=== PATIENT | female | born 1945 | race Caucasian/White ===

== ENCOUNTER 2020-04-05 00:55 | Inpatient (IN) ==
[2020-04-05] MEDS ORDERED: *HR* Ticagrelor 90 MG TABLET ONE (01:18)
[2020-04-05] MEDS ORDERED: 0.9 % Sodium Chloride 1,000 ML ONE ×2 (01:18→01:33)
[2020-04-05] MEDS ORDERED: Aspirin 81 MG TAB.CHEW ONE (01:18)
[2020-04-05] MEDS ORDERED: *HR* Heparin 5,000 UNIT/ML VIAL ONE (01:18)
[2020-04-05] MEDS ORDERED: *HR* FentaNYL (PF) 100 MCG/2 ML VIAL IVP ONE (01:25)
[2020-04-05] MEDS ORDERED: *HR* Ticagrelor 90 MG TABLET PO ONE (01:27)
[2020-04-05] MEDS ORDERED: *HR* Heparin 5,000 UNIT/ML VIAL IVP ONE (01:27)
[2020-04-05] MEDS ORDERED: 0.9 % Sodium Chloride 1,000 ML IV ONE (01:31)
[2020-04-05] MEDS ORDERED: *HR* Bivalirudin 250 MG VIAL IVC ONE (01:33)
[2020-04-05] MEDS ORDERED: ISOVUE-370 200 ML INFUS..BTL ONE (01:34)
[2020-04-05] MEDS ORDERED: *HR* Heparin 10,000 UNIT/10 ML VIAL ONE (01:34)
[2020-04-05] MEDS ORDERED: Heparin 1,000 UNITS/500 mL 500 ML ONE (01:34)
[2020-04-05] MEDS ORDERED: Nitroglycerin 1,000 MCG/10 ML VIAL IV ONE (01:34)
[2020-04-05 01:41] LABS: Basophils # 0.1 K/mcL (0.0-0.2); Basophils % 0.5 %; Eosinophils # 0.1 K/mcL (0.0-0.6); Eosinophils % 0.6 %; Hematocrit 46.7 % (35.3-44.9); Hemoglobin 14.9 g/dL (11.5-15.4); Immature Granulocytes % 0.3 % (0-4); Lymphocytes # 1.3 K/mcL (0.6-4.6); Lymphocytes % 8.7 %; Mean Corpuscular HGB Conc 31.9 g/dL (31.6-35.5); Mean Corpuscular Hemoglobin 28.7 pg (28.0-33.3); Mean Platelet Volume 10.5 fL (9.4-12.4); Monocytes # 1.1 K/mcL (0.0-1.3); Monocytes % 7.4 %; Neutrophils # 11.9 K/mcL (1.6-8.9); Platelet Count 234 K/mcL (140-400); Red Blood Count 5.19 M/mcL (3.82-4.97); Red Cell Distribution Width 13.2 % (11.5-14.5); Segmented Neutrophils % 82.5 %; White Blood Count 14.4 K/mcL (4.3-11.1)
[2020-04-05 01:47] LABS: INR 0.9; Prothrombin Time 10.7 Seconds (9.4-12.1)
[2020-04-05 01:59] LABS: BUN/Creatinine Ratio 13 (6-26); Blood Urea Nitrogen 20 mg/dL (8-23); Calcium 10.1 mg/dL (8.6-10.3); Carbon Dioxide 26 mEq/L (23-29); Chloride 102 mEq/L (98-107); Glucose 159 mg/dL (70-105); Osmolality,Calculated 290 (280-300); Potassium 4.5 mEq/L (3.5-5.1); Sodium 137 mEq/L (136-145); eGFR For African Americans 39 (> 60); eGFR For Non-African Americans 32 (> 60)
[2020-04-05 02:00] LABS: Troponin I < 0.03 ng/mL (< 0.04)
[2020-04-05] MEDS ORDERED: *HR* Midazolam HCl 2 MG/2 ML VIAL ONE (02:00)
[2020-04-05] MEDS ORDERED: *HR* FentaNYL (PF) 100 MCG/2 ML VIAL ONE (02:00)
[2020-04-05 02:52] LABS: Adenovirus Not Detected (Not Detect); Bordetella Pertussis Not Detected (Not Detect); Chlamydophila pneumoniae Not Detected (Not Detect); Coronavirus 229E Not Detected (Not Detect); Coronavirus HKU1 Not Detected (Not Detect); Coronavirus NL63 Not Detected (Not Detect); Coronavirus OC43 Not Detected (Not Detect); Human Metapneumovirus Not Detected (Not Detect); Human Rhinovirus/Enterovirus Not Detected (Not Detect); Influenza A Subtype 2009 H1 Not Detected (Not Detect); Influenza B Not Detected (Not Detect); Mycoplasma pneumoniae Not Detected (Not Detect); Parainfluenza Virus 1 Not Detected (Not Detect); Parainfluenza Virus 2 Not Detected (Not Detect); Parainfluenza Virus 3 Not Detected (Not Detect); Parainfluenza Virus 4 Not Detected (Not Detect); Respiratory Syncytial Virus Not Detected (Not Detect); SARS-CoV-2 Not Detected (Not Detect)
[2020-04-05] MEDS ORDERED: Acetaminophen 325 MG TABLET PO PRN (02:55)
[2020-04-05] MEDS ORDERED: Perflutren Lipid Microsphere 1.3 ML in 0.9 % Sodium Chloride 8.7 ML IVP PRN (02:55)
[2020-04-05] MEDS ORDERED: Nitroglycerin 0.4 MG TAB.SUBL SL PRN (02:55)
[2020-04-05] MEDS ORDERED: 0.9 % Sodium Chloride 1,000 ML IVC SCH (03:00)
[2020-04-05] MEDS ORDERED: *HR* Dextrose 50 % in Water (Vial) 50 ML VIAL IVP PRN (03:14)
[2020-04-05] MEDS ORDERED: D5% in Water 1,000 ML IVC PRN (03:14)
[2020-04-05] MEDS ORDERED: Dextrose Gel 15 GM/37.5 ML TUBE PO PRN ×2 (03:14)
[2020-04-05] MEDS ORDERED: *HR* Atropine Sulfate 1 MG/10 ML SYRINGE ONE (04:42)
[2020-04-05] MEDS ORDERED: Ondansetron 4 MG/2 ML VIAL ONE (05:05)
[2020-04-05] MEDS: Isosorbide MONOnitrate (24 HR) 30 MG TAB.ER.24H PO SCH (07:55)
[2020-04-05 08:10] LABS: Basophils # 0.1 K/mcL (0.0-0.2); Basophils % 0.4 %; Eosinophils % 0.1 %; Hematocrit 43.2 % (35.3-44.9); Hemoglobin 14.2 g/dL (11.5-15.4); Immature Granulocytes % 0.3 % (0-4); Lymphocytes # 1.5 K/mcL (0.6-4.6); Lymphocytes % 11.6 %; Mean Corpuscular HGB Conc 32.9 g/dL (31.6-35.5); Mean Corpuscular Volume 91.1 fL (83.0-100.0); Mean Platelet Volume 10.4 fL (9.4-12.4); Monocytes # 1.2 K/mcL (0.0-1.3); Monocytes % 8.9 %; Neutrophils # 10.2 K/mcL (1.6-8.9); Platelet Count 223 K/mcL (140-400); Red Blood Count 4.74 M/mcL (3.82-4.97); Red Cell Distribution Width 13.2 % (11.5-14.5); Segmented Neutrophils % 78.7 %; White Blood Count 12.9 K/mcL (4.3-11.1)
[2020-04-05] MEDS: Aspirin 81 MG TAB.CHEW PO SCH (08:10)
[2020-04-05] MEDS: Insulin LISPRO 300 UNITS/3 ML VIAL SQ SCH ×3 (08:10→16:05)
[2020-04-05 08:31] LABS: Calcium 9.6 mg/dL (8.6-10.3); Chol/HDL Ratio 3.2 (0-4.9); Potassium 4.5 mEq/L (3.5-5.1); Troponin I 0.03 ng/mL (< 0.04)
[2020-04-05 08:44] LABS: Thyroid Stimulating Hormone 1.427 mcIU/mL (0.340-5.600)
[2020-04-05 09:40] LABS: Estimated Average Glucose 120 mg/dl
[2020-04-05] MEDS: *HR* Heparin 5,000 UNIT/ML VIAL SQ SCH (18:01)
[2020-04-05] MEDS: Ondansetron 4 MG/2 ML VIAL IVP PRN ×2 (18:01→23:54)
[2020-04-06] MEDS: *HR* Heparin 5,000 UNIT/ML VIAL SQ SCH ×2 (05:16→18:41)
[2020-04-06] MEDS ORDERED: DilTIAZem CD (24hr) 300 MG CAP.ER.24H PO SCH (09:00)
[2020-04-06] MEDS: Ondansetron 4 MG/2 ML VIAL IVP PRN ×2 (09:34→18:40)
[2020-04-06] MEDS: Insulin LISPRO 300 UNITS/3 ML VIAL SQ SCH ×3 (09:41→17:08)
[2020-04-06] MEDS: Aspirin 81 MG TAB.CHEW PO SCH (10:35)
[2020-04-06] MEDS: Isosorbide MONOnitrate (24 HR) 30 MG TAB.ER.24H PO SCH (10:35)
[2020-04-06] MEDS ORDERED: Acetaminophen 325 MG TABLET PO PRN (12:35)
[2020-04-06] MEDS ORDERED: D5% in Water 1,000 ML IVC PRN (12:35)
[2020-04-06] MEDS ORDERED: polyethylene glycoL 3350 17 GM POWD.PACK PO PRN (12:35)
[2020-04-06] MEDS ORDERED: Dextrose Gel 15 GM/37.5 ML TUBE PO PRN ×2 (12:35)
[2020-04-06] MEDS ORDERED: Nitroglycerin 0.4 MG TAB.SUBL SL PRN (12:35)
[2020-04-06] MEDS ORDERED: *HR* Dextrose 50 % in Water (Vial) 50 ML VIAL IVP PRN (12:35)
[2020-04-07] MEDS: Ondansetron 4 MG/2 ML VIAL IVP PRN ×4 (02:22→23:07)
[2020-04-07] MEDS: *HR* Heparin 5,000 UNIT/ML VIAL SQ SCH (05:03)
[2020-04-07] MEDS: Insulin LISPRO 300 UNITS/3 ML VIAL SQ SCH ×3 (08:01→18:12)
[2020-04-07] MEDS: Isosorbide MONOnitrate (24 HR) 30 MG TAB.ER.24H PO SCH (08:02)
[2020-04-07] MEDS: Aspirin 81 MG TAB.CHEW PO SCH (08:02)
[2020-04-07] MEDS ORDERED: *HR* Promethazine 25 MG/ML VIAL IVP PRN (08:24)
[2020-04-07] MEDS ORDERED: *HR* Metoprolol 5 MG/5 ML VIAL IVP ONE (08:24)
[2020-04-07] MEDS ORDERED: DilTIAZem 50 MG in 0.9 % Sodium Chloride 40 ML IVC SCH ×2 (08:30→09:01)
[2020-04-07] MEDS ORDERED: Heparin 25,000UNIT/250ML 1/2NS 25,000 UNIT/250 ML IV.SOLN IVC SCH (08:30)
[2020-04-07] MEDS ORDERED: *HR* Heparin 5,000 UNIT/ML VIAL IVP PRN ×2 (08:30)
[2020-04-07] MEDS ORDERED: DilTIAZem CD (24hr) 300 MG CAP.ER.24H PO SCH (09:00)
[2020-04-07 09:26] LABS: Hematocrit 40.5 % (35.3-44.9); Hemoglobin 13.2 g/dL (11.5-15.4); Mean Corpuscular HGB Conc 32.6 g/dL (31.6-35.5); Mean Corpuscular Hemoglobin 29.3 pg (28.0-33.3); Mean Corpuscular Volume 89.8 fL (83.0-100.0); Mean Platelet Volume 11.4 fL (9.4-12.4); Platelet Count 226 K/mcL (140-400); Red Blood Count 4.51 M/mcL (3.82-4.97); Red Cell Distribution Width 13.2 % (11.5-14.5); White Blood Count 10.8 K/mcL (4.3-11.1)
[2020-04-07 09:35] LABS: Heparin anti-factor XA UFH 0.06 IU/mL (0.30-0.70)
[2020-04-07 09:36] LABS: Prothrombin Time 11.2 Seconds (9.4-12.1)
[2020-04-07 09:38] LABS: Magnesium 2.2 mg/dL (1.6-2.6); Potassium 4.1 mEq/L (3.5-5.1)
[2020-04-07] MEDS: Apixaban 5 MG TABLET PO SCH ×2 (12:13→20:52)
[2020-04-07] MEDS: Sodium Bicarbonate 75 MEQ in 0.45 % Sodium Chloride 1,000 ML IVC SCH (23:06)
[2020-04-08 02:40] LABS: Basophils # 0.1 K/mcL (0.0-0.2); Basophils % 0.5 %; Eosinophils # 0.1 K/mcL (0.0-0.6); Eosinophils % 1.3 %; Hematocrit 38.6 % (35.3-44.9); Hemoglobin 12.4 g/dL (11.5-15.4); Immature Granulocytes % 0.3 % (0-4); Lymphocytes # 2.1 K/mcL (0.6-4.6); Lymphocytes % 19.4 %; Mean Corpuscular HGB Conc 32.1 g/dL (31.6-35.5); Mean Corpuscular Hemoglobin 29.4 pg (28.0-33.3); Mean Corpuscular Volume 91.5 fL (83.0-100.0); Mean Platelet Volume 11.3 fL (9.4-12.4); Monocytes # 1.1 K/mcL (0.0-1.3); Monocytes % 9.9 %; Neutrophils # 7.4 K/mcL (1.6-8.9); Platelet Count 240 K/mcL (140-400); Red Blood Count 4.22 M/mcL (3.82-4.97); Red Cell Distribution Width 13.2 % (11.5-14.5); Segmented Neutrophils % 68.6 %; White Blood Count 10.8 K/mcL (4.3-11.1)
[2020-04-08 03:02] LABS: Albumin 3.5 g/dL (3.5-5.7); Calcium 8.6 mg/dL (8.6-10.3)
[2020-04-08] MEDS: Insulin LISPRO 300 UNITS/3 ML VIAL SQ SCH ×3 (08:00→16:31)
[2020-04-08] MEDS: Aspirin 81 MG TAB.CHEW PO SCH (10:01)
[2020-04-08] MEDS: Isosorbide MONOnitrate (24 HR) 30 MG TAB.ER.24H PO SCH (10:01)
[2020-04-08] MEDS: DilTIAZem CD (24hr) 180 MG CAP.ER.24H PO SCH (10:02)
[2020-04-08] MEDS: Apixaban 5 MG TABLET PO SCH ×2 (10:02→20:00)
[2020-04-08 11:01] LABS: Bilirubin,Urine Small (Negative); Blood,Urine Trace-intact (Negative); Clarity,Urine Clear (Clear); Color,Urine Yellow (Yellow); Glucose,Urine (UA) Normal (Normal); Ketones,Urine Negative (Negative); Leukocyte Esterase,Urine Negative (Negative); Nitrite,Urine Negative (Negative); PH,Urine 5.5 pH Units (5.0-8.0); Protein,Urine Negative (Neg-Trace); Urobilinogen,Urine Normal (Normal)
[2020-04-08 11:05] LABS: Hyaline Casts,Urine Few per lpf (None Seen); Mucus,Urine Few per lpf (None-Few); RBC,Urine 0-3 per hpf (0-3); Squamous Epithelial Cell,Urine Few per hpf (None-Few); WBC,Urine 0-3 per hpf (0-3)
[2020-04-08] MEDS: Sodium Bicarbonate 75 MEQ in 0.45 % Sodium Chloride 1,000 ML IVC SCH (13:51)
[2020-04-09 02:28] LABS: Hematocrit 34.2 % (35.3-44.9); Hemoglobin 11.5 g/dL (11.5-15.4); Mean Corpuscular HGB Conc 33.6 g/dL (31.6-35.5); Mean Corpuscular Hemoglobin 29.7 pg (28.0-33.3); Mean Corpuscular Volume 88.4 fL (83.0-100.0); Mean Platelet Volume 11.2 fL (9.4-12.4); Platelet Count 228 K/mcL (140-400); Red Blood Count 3.87 M/mcL (3.82-4.97); White Blood Count 8.9 K/mcL (4.3-11.1)
[2020-04-09 02:45] LABS: Calcium 8.5 mg/dL (8.6-10.3); Potassium 3.9 mEq/L (3.5-5.1)
[2020-04-09 06:51] VITALS: BP 104/69
[2020-04-09] MEDS: Insulin LISPRO 300 UNITS/3 ML VIAL SQ SCH (07:41)
[2020-04-09] MEDS: DilTIAZem CD (24hr) 180 MG CAP.ER.24H PO SCH (07:46)
[2020-04-09] MEDS: Apixaban 5 MG TABLET PO SCH (07:46)
[2020-04-09] MEDS: Aspirin 81 MG TAB.CHEW PO SCH (07:46)
[2020-04-09] MEDS: Isosorbide MONOnitrate (24 HR) 30 MG TAB.ER.24H PO SCH (07:46)
[2020-04-12 11:12] LABS: Kappa Qnt Free Light Chains 36.31 mg/L (3.30-19.40); Lambda Qnt Free Light Chains 27.82 mg/L (5.71-26.30)
[2020-04-13 02:40] LABS: Alpha 2 Globulin (PEP) 0.88 g/dL (0.48-1.05); Beta Globulin (PEP) 0.76 g/dL (0.48-1.10)
[2020-04-13 08:05] LABS: IFE Reflexed NOT DONE
== END 2020-04-09 11:56 | disposition other institution (70) | DRG 281 ==
LOC: EMEROOARM 00:55 → ICNU 01:55 → 2NNU 04-06 15:29
PROVIDERS: ADMIT Internal Medicine Interventional Cardiology; ATTEND Internal Medicine Cardiovascular Disease

== ENCOUNTER 2020-04-17 20:48 | Inpatient (IN) ==
[2020-04-18] MEDS ORDERED: Naloxone 0.4 MG/ML INJ IVP PRN ×2 (00:05→00:53)
[2020-04-18 01:34] LABS: Adenovirus Not Detected (Not Detect); Bordetella Pertussis Not Detected (Not Detect); Chlamydophila pneumoniae Not Detected (Not Detect); Coronavirus 229E Not Detected (Not Detect); Coronavirus HKU1 Not Detected (Not Detect); Coronavirus NL63 Not Detected (Not Detect); Coronavirus OC43 Not Detected (Not Detect); Human Metapneumovirus Not Detected (Not Detect); Human Rhinovirus/Enterovirus Not Detected (Not Detect); Influenza A Subtype 2009 H1 Not Detected (Not Detect); Influenza B Not Detected (Not Detect); Mycoplasma pneumoniae Not Detected (Not Detect); Parainfluenza Virus 1 Not Detected (Not Detect); Parainfluenza Virus 2 Not Detected (Not Detect); Parainfluenza Virus 3 Not Detected (Not Detect); Parainfluenza Virus 4 Not Detected (Not Detect); Respiratory Syncytial Virus Not Detected (Not Detect); SARS-CoV-2 Not Detected (Not Detect)
[2020-04-18 01:39] LABS: Basophils % 0.1 %; Hematocrit 32.1 % (35.3-44.9); Hemoglobin 10.5 g/dL (11.5-15.4); Immature Granulocytes % 0.5 % (0-4); Lymphocytes # 0.5 K/mcL (0.6-4.6); Lymphocytes % 5.4 %; Mean Corpuscular HGB Conc 32.7 g/dL (31.6-35.5); Mean Corpuscular Hemoglobin 29.7 pg (28.0-33.3); Mean Corpuscular Volume 90.9 fL (83.0-100.0); Mean Platelet Volume 10.4 fL (9.4-12.4); Monocytes # 0.2 K/mcL (0.0-1.3); Monocytes % 2.5 %; Neutrophils # 8.9 K/mcL (1.6-8.9); Platelet Count 350 K/mcL (140-400); Red Blood Count 3.53 M/mcL (3.82-4.97); Red Cell Distribution Width 13.4 % (11.5-14.5); Segmented Neutrophils % 91.5 %; White Blood Count 9.8 K/mcL (4.3-11.1)
[2020-04-18 01:41] LABS: INR 1.6; Prothrombin Time 18.5 Seconds (9.4-12.1)
[2020-04-18 02:05] LABS: Alanine Aminotransferase 43 Units/L (7-52); Albumin 3.4 g/dL (3.5-5.7); Albumin/Globulin Ratio 1.1 (1.1-2.2); Alkaline Phosphatase 72 Units/L (34-104); Aspartate Amino Transferase 34 Units/L (13-39); BUN/Creatinine Ratio 24 (6-26); Bilirubin,Total 0.9 mg/dL (0.3-1.0); Blood Urea Nitrogen 36 mg/dL (8-23); Carbon Dioxide 21 mEq/L (23-29); Chloride 101 mEq/L (98-107); Globulin 3.1 g/dL (2.4-3.5); Glucose 163 mg/dL (70-105); Magnesium 2.4 mg/dL (1.6-2.6); Osmolality,Calculated 288 (280-300); Phosphorous 4.5 mg/dL (2.7-4.5); Potassium 4.6 mEq/L (3.5-5.1); Sodium 133 mEq/L (136-145); Total Protein 6.5 g/dL (6.4-8.9); Troponin I < 0.03 ng/mL (< 0.04); eGFR For African Americans 40 (> 60); eGFR For Non-African Americans 33 (> 60)
[2020-04-18] MEDS ORDERED: Furosemide 20 MG/2 ML VIAL IVP ONE (02:51)
[2020-04-18] MEDS ORDERED: Vancomycin 1,750 MG/517.5 ML IV.SOLN IVPB ONE (03:00)
[2020-04-18 03:03] LABS: Bacteria,Urine Few per hpf (None-Few); Bilirubin,Urine Negative (Negative); Blood,Urine Negative (Negative); Clarity,Urine Clear (Clear); Color,Urine Light-Yellow (Yellow); Glucose,Urine (UA) Normal (Normal); Ketones,Urine Negative (Negative); Leukocyte Esterase,Urine Moderate (Negative); Nitrite,Urine Negative (Negative); PH,Urine 5.5 pH Units (5.0-8.0); Protein,Urine Trace mg/dL (Neg-Trace); RBC,Urine 0-3 per hpf (0-3); Specific Gravity,Urine 1.019 (1.010-1.025); Squamous Epithelial Cell,Urine Few per hpf (None-Few); Urobilinogen,Urine Normal (Normal)
[2020-04-18] MEDS: Nystatin POWDER 30 GM BOTTLE TP SCH ×4 (04:08→20:12)
[2020-04-18] MEDS: Aspirin Enteric Coated 81 MG Tablet PO SCH (07:56)
[2020-04-18] MEDS: Apixaban 5 MG TABLET PO SCH ×2 (07:56→20:12)
[2020-04-18] MEDS: Piperacillin/Tazobactam 3.375 GM in 0.9 % Sodium Chloride Mini Bag 100 ML IVPB SCH ×3 (07:57→23:22)
[2020-04-18] MEDS ORDERED: MethylPREDNISolone 40 MG/ML VIAL IVP SCH (08:00)
[2020-04-18] MEDS ORDERED: Furosemide 40 MG/4 ML VIAL IVP SCH (09:00)
[2020-04-18] MEDS: Isosorbide MONOnitrate (24 HR) 30 MG TAB.ER.24H PO SCH (14:25)
[2020-04-18] MEDS: Acetaminophen 325 MG TABLET PO PRN (19:35)
[2020-04-19] MEDS ORDERED: Vancomycin 1,250 MG/262.5 ML IV.SOLN IVPB SCH (03:00)
[2020-04-19] MEDS: Piperacillin/Tazobactam 3.375 GM in 0.9 % Sodium Chloride Mini Bag 100 ML IVPB SCH ×2 (07:42→16:05)
[2020-04-19] MEDS: *HR* Metoprolol 5 MG/5 ML VIAL IVP PRN (07:43)
[2020-04-19] MEDS: Apixaban 5 MG TABLET PO SCH ×2 (08:23→21:57)
[2020-04-19] MEDS: Aspirin Enteric Coated 81 MG Tablet PO SCH (08:23)
[2020-04-19] MEDS: MethylPREDNISolone 40 MG/ML VIAL IVP SCH ×2 (08:24→21:56)
[2020-04-19 08:26] LABS: Basophils % 0.1 %; Hematocrit 32.8 % (35.3-44.9); Hemoglobin 10.6 g/dL (11.5-15.4); Immature Granulocytes % 0.8 % (0-4); Lymphocytes # 0.9 K/mcL (0.6-4.6); Mean Corpuscular HGB Conc 32.3 g/dL (31.6-35.5); Mean Corpuscular Hemoglobin 29.7 pg (28.0-33.3); Mean Corpuscular Volume 91.9 fL (83.0-100.0); Mean Platelet Volume 10.4 fL (9.4-12.4); Monocytes # 0.8 K/mcL (0.0-1.3); Monocytes % 5.8 %; Neutrophils # 11.2 K/mcL (1.6-8.9); Platelet Count 448 K/mcL (140-400); Red Blood Count 3.57 M/mcL (3.82-4.97); Red Cell Distribution Width 13.6 % (11.5-14.5); Segmented Neutrophils % 86.3 %
[2020-04-19] MEDS ORDERED: Saline Nasal Spray 44 ML BOTTLE NS PRN (08:28)
[2020-04-19 08:49] LABS: Albumin 3.3 g/dL (3.5-5.7); Albumin/Globulin Ratio 1.1 (1.1-2.2); Bilirubin,Total 0.8 mg/dL (0.3-1.0); Calcium 9.2 mg/dL (8.6-10.3); Globulin 2.9 g/dL (2.4-3.5); Potassium 4.1 mEq/L (3.5-5.1); Total Protein 6.2 g/dL (6.4-8.9)
[2020-04-19] MEDS ORDERED: MethylPREDNISolone 40 MG/ML VIAL IVP SCH (09:00)
[2020-04-19] MEDS ORDERED: Furosemide 40 MG/4 ML VIAL IVP SCH (09:00)
[2020-04-19] MEDS: Nystatin POWDER 30 GM BOTTLE TP SCH ×3 (09:02→23:30)
[2020-04-19 09:13] LABS: Magnesium 2.5 mg/dL (1.6-2.6)
[2020-04-19] MEDS ORDERED: polyethylene glycoL 3350 17 GM POWD.PACK PO PRN (12:14)
[2020-04-19] MEDS: Levalbuterol Neb 0.63 MG/3 ML IH SCH ×2 (15:06→22:10)
[2020-04-19] MEDS: Ondansetron 4 MG/2 ML VIAL IVP PRN (19:08)
[2020-04-19] MEDS ORDERED: Aspirin 325 MG TABLET PO ONE (19:40)
[2020-04-20] MEDS: Piperacillin/Tazobactam 3.375 GM in 0.9 % Sodium Chloride Mini Bag 100 ML IVPB SCH ×3 (01:17→16:58)
[2020-04-20 02:54] LABS: Basophils % 0.2 %; Hematocrit 34.5 % (35.3-44.9); Immature Granulocytes % 1.2 % (0-4); Lymphocytes # 0.7 K/mcL (0.6-4.6); Lymphocytes % 6.2 %; Mean Corpuscular HGB Conc 31.9 g/dL (31.6-35.5); Mean Corpuscular Hemoglobin 29.7 pg (28.0-33.3); Mean Corpuscular Volume 93.2 fL (83.0-100.0); Mean Platelet Volume 10.2 fL (9.4-12.4); Monocytes # 0.5 K/mcL (0.0-1.3); Monocytes % 4.3 %; Neutrophils # 9.9 K/mcL (1.6-8.9); Nucleated Red Blood Cells 0.2 /100 WBC (0); Platelet Count 465 K/mcL (140-400); Red Cell Distribution Width 13.7 % (11.5-14.5); Segmented Neutrophils % 88.1 %; White Blood Count 11.2 K/mcL (4.3-11.1)
[2020-04-20 03:14] LABS: Magnesium 2.5 mg/dL (1.6-2.6); Potassium 4.6 mEq/L (3.5-5.1)
[2020-04-20] MEDS: Levalbuterol Neb 0.63 MG/3 ML IH SCH ×4 (03:16→21:24)
[2020-04-20] MEDS: Ondansetron 4 MG/2 ML VIAL IVP PRN (04:15)
[2020-04-20] MEDS: MethylPREDNISolone 40 MG/ML VIAL IVP SCH ×2 (08:00→20:58)
[2020-04-20] MEDS: Aspirin Enteric Coated 81 MG Tablet PO SCH (09:04)
[2020-04-20] MEDS: Apixaban 5 MG TABLET PO SCH ×2 (09:05→20:59)
[2020-04-20] MEDS: Nystatin POWDER 30 GM BOTTLE TP SCH ×3 (09:05→21:00)
[2020-04-20] MEDS ORDERED: Perflutren Lipid Microsphere 1.3 ML in 0.9 % Sodium Chloride 8.7 ML IVP PRN (10:31)
[2020-04-20] MEDS: *HR* Metoprolol 5 MG/5 ML VIAL IVP PRN (12:47)
[2020-04-21] MEDS: Piperacillin/Tazobactam 3.375 GM in 0.9 % Sodium Chloride Mini Bag 100 ML IVPB SCH ×3 (00:30→16:31)
[2020-04-21] MEDS: Levalbuterol Neb 0.63 MG/3 ML IH SCH ×4 (04:04→22:38)
[2020-04-21 07:18] LABS: Adenovirus F 40/41 PCR Not detected (Not detect); Astrovirus PCR Not detected (Not detect); C.difficile Toxin A/B Gene PCR Not detected (Not detect); Campylobacter by PCR Not detected (Not detect); Cryptosporidium by PCR Not detected (Not detect); Cyclospora cayetanensis PCR Not detected (Not detect); E. coli O157 by PCR Not detected (Not detect); Entamoeba histolytica PCR Not detected (Not detect); Enteroaggregative E.coli(EAEC) Not detected (Not detect); Enteropathogenic E.coli(EPEC) Not detected (Not detect); Enterotoxigenic E.coli (ETEC) Not detected (Not detect); Giardia lamblia PCR Not detected (Not detect); Norovirus GI/GII PCR Not detected (Not detect); Plesiomonas shigelloides PCR Not detected (Not detect); Rotavirus A PCR Not detected (Not detect); Salmonella PCR Not detected (Not detect); Sapovirus PCR Not detected (Not detect); Shig/EnteroinvasiveE coli EIEC Not detected (Not detect); Shigalike tox-prod E coli STEC Not detected (Not detect); Vibrio PCR Not detected (Not detect); Vibrio cholerae PCR Not detected (Not detect); Yersinia enterocolitica PCR Not detected (Not detect)
[2020-04-21] MEDS: Nystatin POWDER 30 GM BOTTLE TP SCH ×3 (08:23→20:49)
[2020-04-21] MEDS: MethylPREDNISolone 40 MG/ML VIAL IVP SCH ×2 (08:23→20:44)
[2020-04-21] MEDS: Apixaban 5 MG TABLET PO SCH ×2 (08:23→20:43)
[2020-04-21] MEDS: Aspirin Enteric Coated 81 MG Tablet PO SCH (08:23)
[2020-04-21 09:02] LABS: Basophils % 0.2 %; Hematocrit 33.6 % (35.3-44.9); Hemoglobin 10.8 g/dL (11.5-15.4); Lymphocytes # 1.1 K/mcL (0.6-4.6); Lymphocytes % 9.1 %; Mean Corpuscular HGB Conc 32.1 g/dL (31.6-35.5); Mean Corpuscular Hemoglobin 29.6 pg (28.0-33.3); Mean Corpuscular Volume 92.1 fL (83.0-100.0); Mean Platelet Volume 10.3 fL (9.4-12.4); Monocytes # 0.7 K/mcL (0.0-1.3); Nucleated Red Blood Cells 0.3 /100 WBC (0); Platelet Count 489 K/mcL (140-400); Red Blood Count 3.65 M/mcL (3.82-4.97); Segmented Neutrophils % 82.7 %
[2020-04-21 09:22] LABS: Calcium 9.2 mg/dL (8.6-10.3); Magnesium 2.5 mg/dL (1.6-2.6); Potassium 4.4 mEq/L (3.5-5.1)
[2020-04-21] MEDS: Pantoprazole 40 MG VIAL IVP SCH ×2 (13:19→16:31)
[2020-04-22] MEDS: Piperacillin/Tazobactam 3.375 GM in 0.9 % Sodium Chloride Mini Bag 100 ML IVPB SCH ×3 (00:08→15:59)
[2020-04-22] MEDS: Levalbuterol Neb 0.63 MG/3 ML IH SCH ×4 (03:12→21:53)
[2020-04-22] MEDS: *HR* Metoprolol 5 MG/5 ML VIAL IVP PRN (04:11)
[2020-04-22] MEDS: Pantoprazole 40 MG VIAL IVP SCH ×2 (05:39→15:59)
[2020-04-22 05:45] LABS: Basophils % 0.2 %; Hematocrit 32.6 % (35.3-44.9); Hemoglobin 10.4 g/dL (11.5-15.4); Immature Granulocytes % 2.8 % (0-4); Lymphocytes # 0.9 K/mcL (0.6-4.6); Lymphocytes % 7.8 %; Mean Corpuscular HGB Conc 31.9 g/dL (31.6-35.5); Mean Corpuscular Hemoglobin 29.7 pg (28.0-33.3); Mean Corpuscular Volume 93.1 fL (83.0-100.0); Mean Platelet Volume 10.4 fL (9.4-12.4); Monocytes # 0.8 K/mcL (0.0-1.3); Monocytes % 6.7 %; Neutrophils # 9.8 K/mcL (1.6-8.9); Nucleated Red Blood Cells 0.3 /100 WBC (0); Platelet Count 471 K/mcL (140-400); Red Cell Distribution Width 14.1 % (11.5-14.5); Segmented Neutrophils % 82.5 %; White Blood Count 11.9 K/mcL (4.3-11.1)
[2020-04-22 06:06] LABS: BUN/Creatinine Ratio 39 (6-26); Blood Urea Nitrogen 70 mg/dL (8-23); Carbon Dioxide 23 mEq/L (23-29); Chloride 103 mEq/L (98-107); Glucose 175 mg/dL (70-105); Osmolality,Calculated 307 (280-300); Potassium 4.2 mEq/L (3.5-5.1); Sodium 136 mEq/L (136-145); Troponin I < 0.03 ng/mL (< 0.04); eGFR For African Americans 33 (> 60); eGFR For Non-African Americans 27 (> 60)
[2020-04-22] MEDS: Nitroglycerin 0.4 MG TAB.SUBL SL PRN (07:21)
[2020-04-22] MEDS: Aspirin Enteric Coated 81 MG Tablet PO SCH (07:35)
[2020-04-22] MEDS: MethylPREDNISolone 40 MG/ML VIAL IVP SCH ×3 (07:35→15:58)
[2020-04-22] MEDS: Apixaban 5 MG TABLET PO SCH ×2 (07:36→20:10)
[2020-04-22] MEDS: Nystatin POWDER 30 GM BOTTLE TP SCH ×3 (07:36→20:11)
[2020-04-22] MEDS ORDERED: Furosemide 40 MG/4 ML VIAL IVP ONE (09:32)
[2020-04-22] MEDS: DilTIAZem CD (24hr) 180 MG CAP.ER.24H PO SCH (09:36)
[2020-04-22] MEDS: Isosorbide MONOnitrate (24 HR) 30 MG TAB.ER.24H PO SCH (09:36)
[2020-04-22] MEDS ORDERED: Furosemide 40 MG/4 ML VIAL ONE (09:46)
[2020-04-22] MEDS: Metoprolol XL (24 HR) Succ 25 MG TAB.ER.24H PO SCH ×2 (09:47→20:10)
[2020-04-22] MEDS: Acetaminophen 325 MG TABLET PO PRN ×2 (10:59→20:10)
[2020-04-23] MEDS: Piperacillin/Tazobactam 3.375 GM in 0.9 % Sodium Chloride Mini Bag 100 ML IVPB SCH ×4 (00:15→23:50)
[2020-04-23] MEDS: MethylPREDNISolone 40 MG/ML VIAL IVP SCH ×4 (00:15→23:49)
[2020-04-23] MEDS: *HR* Metoprolol 5 MG/5 ML VIAL IVP PRN (01:38)
[2020-04-23] MEDS: Levalbuterol Neb 0.63 MG/3 ML IH SCH ×4 (04:15→21:40)
[2020-04-23] MEDS: Pantoprazole 40 MG VIAL IVP SCH ×2 (05:05→17:16)
[2020-04-23] MEDS: Aspirin Enteric Coated 81 MG Tablet PO SCH (07:25)
[2020-04-23] MEDS: DilTIAZem CD (24hr) 180 MG CAP.ER.24H PO SCH (07:25)
[2020-04-23] MEDS: Apixaban 5 MG TABLET PO SCH ×2 (07:25→20:58)
[2020-04-23] MEDS: Nystatin POWDER 30 GM BOTTLE TP SCH ×3 (07:26→20:59)
[2020-04-23] MEDS: Isosorbide MONOnitrate (24 HR) 30 MG TAB.ER.24H PO SCH (07:26)
[2020-04-23] MEDS: Metoprolol XL (24 HR) Succ 25 MG TAB.ER.24H PO SCH (07:26)
[2020-04-23 09:32] LABS: Basophils % 0.3 %; Hematocrit 33.1 % (35.3-44.9); Hemoglobin 10.3 g/dL (11.5-15.4); Immature Granulocytes % 2.3 % (0-4); Lymphocytes # 0.9 K/mcL (0.6-4.6); Lymphocytes % 7.2 %; Mean Corpuscular HGB Conc 31.1 g/dL (31.6-35.5); Mean Corpuscular Hemoglobin 28.9 pg (28.0-33.3); Mean Corpuscular Volume 92.7 fL (83.0-100.0); Mean Platelet Volume 10.7 fL (9.4-12.4); Monocytes # 0.6 K/mcL (0.0-1.3); Monocytes % 4.9 %; Neutrophils # 10.1 K/mcL (1.6-8.9); Nucleated Red Blood Cells 0.4 /100 WBC (0); Platelet Count 469 K/mcL (140-400); Red Blood Count 3.57 M/mcL (3.82-4.97); Red Cell Distribution Width 14.6 % (11.5-14.5); Segmented Neutrophils % 85.3 %; White Blood Count 11.8 K/mcL (4.3-11.1)
[2020-04-23 09:50] LABS: Calcium 8.7 mg/dL (8.6-10.3); Magnesium 2.6 mg/dL (1.6-2.6); Potassium 4.1 mEq/L (3.5-5.1)
[2020-04-23] MEDS ORDERED: Metoprolol XL (24 HR) Succ 25 MG TAB.ER.24H PO ONE (10:19)
[2020-04-23] MEDS ORDERED: Furosemide 40 MG/4 ML VIAL IVP ONE (10:20)
[2020-04-23] MEDS ORDERED: Furosemide 40 MG/4 ML VIAL IVP SCH (10:30)
[2020-04-23] MEDS ORDERED: *HR* Metoprolol 5 MG/5 ML VIAL IVP ONE (16:40)
[2020-04-23] MEDS: Acetaminophen 325 MG TABLET PO PRN (20:58)
[2020-04-23] MEDS: Metoprolol XL (24 HR) Succ 50 MG TAB.ER.24H PO SCH (20:59)
[2020-04-24] MEDS: *HR* Metoprolol 5 MG/5 ML VIAL IVP PRN (01:23)
[2020-04-24] MEDS: Levalbuterol Neb 0.63 MG/3 ML IH SCH ×4 (03:05→21:40)
[2020-04-24 03:16] LABS: Basophils % 0.3 %; Hematocrit 31.5 % (35.3-44.9); Hemoglobin 9.8 g/dL (11.5-15.4); Immature Granulocytes % 2.4 % (0-4); Lymphocytes # 0.9 K/mcL (0.6-4.6); Lymphocytes % 6.6 %; Mean Corpuscular HGB Conc 31.1 g/dL (31.6-35.5); Mean Corpuscular Hemoglobin 28.5 pg (28.0-33.3); Mean Corpuscular Volume 91.6 fL (83.0-100.0); Mean Platelet Volume 10.7 fL (9.4-12.4); Monocytes # 1.1 K/mcL (0.0-1.3); Monocytes % 8.2 %; Neutrophils # 11.2 K/mcL (1.6-8.9); Nucleated Red Blood Cells 0.5 /100 WBC (0); Platelet Count 458 K/mcL (140-400); Red Blood Count 3.44 M/mcL (3.82-4.97); Red Cell Distribution Width 14.6 % (11.5-14.5); Segmented Neutrophils % 82.5 %; White Blood Count 13.6 K/mcL (4.3-11.1)
[2020-04-24 03:31] LABS: Calcium 8.2 mg/dL (8.6-10.3); Potassium 3.8 mEq/L (3.5-5.1)
[2020-04-24] MEDS ORDERED: *HR* Metoprolol 5 MG/5 ML VIAL IVP ONE (04:30)
[2020-04-24] MEDS: Pantoprazole 40 MG VIAL IVP SCH ×2 (05:14→17:28)
[2020-04-24] MEDS: Acetaminophen 325 MG TABLET PO PRN ×2 (05:15→20:09)
[2020-04-24] MEDS: DilTIAZem CD (24hr) 180 MG CAP.ER.24H PO SCH (07:40)
[2020-04-24] MEDS: Nystatin POWDER 30 GM BOTTLE TP SCH ×3 (07:40→23:56)
[2020-04-24] MEDS: Metoprolol XL (24 HR) Succ 50 MG TAB.ER.24H PO SCH ×2 (07:40→20:08)
[2020-04-24] MEDS: Aspirin Enteric Coated 81 MG Tablet PO SCH (07:40)
[2020-04-24] MEDS: Isosorbide MONOnitrate (24 HR) 30 MG TAB.ER.24H PO SCH (07:40)
[2020-04-24] MEDS: Apixaban 5 MG TABLET PO SCH ×2 (07:40→20:08)
[2020-04-24] MEDS: MethylPREDNISolone 40 MG/ML VIAL IVP SCH ×3 (07:40→23:55)
[2020-04-24] MEDS: Piperacillin/Tazobactam 3.375 GM in 0.9 % Sodium Chloride Mini Bag 100 ML IVPB SCH ×3 (07:41→23:54)
[2020-04-24] MEDS ORDERED: Vancomycin 1 EACH in 0.9 % Sodium Chloride 250 ML IVPB SCH (14:00)
[2020-04-24] MEDS ORDERED: Vancomycin 1,750 MG/517.5 ML IV.SOLN IVPB ONE (14:48)
[2020-04-24] MEDS: DilTIAZem 50 MG/50 ML IV.SOLN IVC SCH ×3 (15:01→23:56)
[2020-04-24] MEDS: Doxycycline 100 MG CAPSULE PO SCH (20:07)
[2020-04-25] MEDS ORDERED: *HR* LORazepam 1 MG TABLET PO ONE (02:08)
[2020-04-25 02:56] LABS: Basophils # 0.1 K/mcL (0.0-0.2); Basophils % 0.4 %; Hematocrit 31.7 % (35.3-44.9); Hemoglobin 9.4 g/dL (11.5-15.4); Immature Granulocytes % 3.4 % (0-4); Lymphocytes # 0.8 K/mcL (0.6-4.6); Lymphocytes % 5.9 %; Mean Corpuscular HGB Conc 29.7 g/dL (31.6-35.5); Mean Corpuscular Hemoglobin 28.8 pg (28.0-33.3); Mean Corpuscular Volume 97.2 fL (83.0-100.0); Mean Platelet Volume 10.8 fL (9.4-12.4); Monocytes # 0.7 K/mcL (0.0-1.3); Monocytes % 5.7 %; Neutrophils # 10.8 K/mcL (1.6-8.9); Nucleated Red Blood Cells 0.5 /100 WBC (0); Platelet Count 370 K/mcL (140-400); Red Blood Count 3.26 M/mcL (3.82-4.97); Red Cell Distribution Width 14.9 % (11.5-14.5); Segmented Neutrophils % 84.6 %; White Blood Count 12.8 K/mcL (4.3-11.1)
[2020-04-25 03:18] LABS: Troponin I < 0.03 ng/mL (< 0.04)
[2020-04-25 03:43] LABS: BUN/Creatinine Ratio 42 (6-26); Blood Urea Nitrogen 70 mg/dL (8-23); Calcium 8.2 mg/dL (8.6-10.3); Carbon Dioxide 18 mEq/L (23-29); Chloride 103 mEq/L (98-107); Glucose 222 mg/dL (70-105); Osmolality,Calculated 311 (280-300); Potassium 4.2 mEq/L (3.5-5.1); Sodium 137 mEq/L (136-145); eGFR For African Americans 36 (> 60); eGFR For Non-African Americans 30 (> 60)
[2020-04-25] MEDS: Levalbuterol Neb 0.63 MG/3 ML IH SCH ×4 (03:56→20:13)
[2020-04-25] MEDS: DilTIAZem 50 MG/50 ML IV.SOLN IVC SCH ×2 (04:24→09:27)
[2020-04-25] MEDS: Isosorbide MONOnitrate (24 HR) 30 MG TAB.ER.24H PO SCH (08:13)
[2020-04-25] MEDS: Metoprolol XL (24 HR) Succ 50 MG TAB.ER.24H PO SCH ×2 (08:13→22:20)
[2020-04-25] MEDS: Apixaban 5 MG TABLET PO SCH ×2 (08:13→22:20)
[2020-04-25] MEDS: Aspirin Enteric Coated 81 MG Tablet PO SCH (08:14)
[2020-04-25] MEDS: Pantoprazole 40 MG VIAL IVP SCH ×2 (08:14→17:21)
[2020-04-25] MEDS: Doxycycline 100 MG CAPSULE PO SCH ×2 (08:14→22:20)
[2020-04-25] MEDS: Piperacillin/Tazobactam 3.375 GM in 0.9 % Sodium Chloride Mini Bag 100 ML IVPB SCH ×3 (08:14→22:35)
[2020-04-25] MEDS: MethylPREDNISolone 40 MG/ML VIAL IVP SCH ×3 (08:15→22:19)
[2020-04-25] MEDS: Nystatin POWDER 30 GM BOTTLE TP SCH ×3 (08:20→22:21)
[2020-04-25] MEDS ORDERED: Furosemide 40 MG/4 ML VIAL IVP ONE (11:07)
[2020-04-25] MEDS ORDERED: *HR* Digoxin 0.5 MG/2 ML AMPUL IVP ONE (12:14)
[2020-04-25] MEDS: DilTIAZem CD (24hr) 180 MG CAP.ER.24H PO SCH (14:17)
[2020-04-25] MEDS: Ipratropium 1 PUFF INHALER IH SCH ×2 (15:22→20:13)
[2020-04-25] MEDS: Vancomycin 1,250 MG/262.5 ML IV.SOLN IVPB SCH (15:31)
[2020-04-25] MEDS ORDERED: *HR* Digoxin 0.5 MG/2 ML AMPUL IVP SCH (18:00)
[2020-04-26] MEDS: Ipratropium 1 PUFF INHALER IH SCH ×6 (00:29→20:21)
[2020-04-26 01:56] LABS: Basophils % 0.2 %; Hematocrit 28.2 % (35.3-44.9); Immature Granulocytes % 3.3 % (0-4); Lymphocytes # 0.8 K/mcL (0.6-4.6); Lymphocytes % 6.1 %; Mean Corpuscular HGB Conc 31.9 g/dL (31.6-35.5); Mean Corpuscular Hemoglobin 29.9 pg (28.0-33.3); Mean Corpuscular Volume 93.7 fL (83.0-100.0); Mean Platelet Volume 11.1 fL (9.4-12.4); Monocytes # 0.9 K/mcL (0.0-1.3); Monocytes % 6.7 %; Neutrophils # 11.5 K/mcL (1.6-8.9); Nucleated Red Blood Cells 0.7 /100 WBC (0); Platelet Count 348 K/mcL (140-400); Red Blood Count 3.01 M/mcL (3.82-4.97); Segmented Neutrophils % 83.7 %; White Blood Count 13.7 K/mcL (4.3-11.1)
[2020-04-26 02:01] LABS: Calcium 8.1 mg/dL (8.6-10.3); Potassium 4.2 mEq/L (3.5-5.1)
[2020-04-26] MEDS ORDERED: *HR* Digoxin 0.5 MG/2 ML AMPUL IVP SCH (03:00)
[2020-04-26] MEDS: Levalbuterol Neb 0.63 MG/3 ML IH SCH ×5 (05:11→21:38)
[2020-04-26] MEDS: Pantoprazole 40 MG VIAL IVP SCH ×2 (05:45→16:52)
[2020-04-26] MEDS: MethylPREDNISolone 40 MG/ML VIAL IVP SCH ×3 (07:38→23:11)
[2020-04-26] MEDS: Doxycycline 100 MG CAPSULE PO SCH ×2 (07:38→23:11)
[2020-04-26] MEDS: Piperacillin/Tazobactam 3.375 GM in 0.9 % Sodium Chloride Mini Bag 100 ML IVPB SCH ×3 (07:39→23:10)
[2020-04-26] MEDS: Apixaban 5 MG TABLET PO SCH ×2 (07:39→23:11)
[2020-04-26] MEDS: DilTIAZem CD (24hr) 180 MG CAP.ER.24H PO SCH (07:39)
[2020-04-26] MEDS: Aspirin Enteric Coated 81 MG Tablet PO SCH (07:39)
[2020-04-26] MEDS: Isosorbide MONOnitrate (24 HR) 30 MG TAB.ER.24H PO SCH (07:40)
[2020-04-26] MEDS: Nystatin POWDER 30 GM BOTTLE TP SCH ×3 (07:40→21:00)
[2020-04-26] MEDS: Metoprolol XL (24 HR) Succ 50 MG TAB.ER.24H PO SCH ×2 (07:40→23:11)
[2020-04-26] MEDS: Bumetanide 1 MG/4 ML VIAL IVP SCH ×2 (10:25→16:52)
[2020-04-26] MEDS: Vancomycin 1,250 MG/262.5 ML IV.SOLN IVPB SCH (16:51)
[2020-04-26 18:14] LABS: Hematocrit 30.8 % (35.3-44.9); Hemoglobin 9.9 g/dL (11.5-15.4)
[2020-04-26] MEDS: Ipratropium Neb 0.5 MG NEBULIZER IH SCH (23:43)
[2020-04-27] MEDS: Ipratropium Neb 0.5 MG NEBULIZER IH SCH ×6 (03:23→23:56)
[2020-04-27 05:47] LABS: Basophils % 0.2 %; Eosinophils % 0.1 %; Hematocrit 28.6 % (35.3-44.9); Hemoglobin 9.2 g/dL (11.5-15.4); Immature Granulocytes % 3.4 % (0-4); Lymphocytes # 0.9 K/mcL (0.6-4.6); Lymphocytes % 5.7 %; Mean Corpuscular HGB Conc 32.2 g/dL (31.6-35.5); Mean Corpuscular Hemoglobin 30.4 pg (28.0-33.3); Mean Corpuscular Volume 94.4 fL (83.0-100.0); Mean Platelet Volume 11.4 fL (9.4-12.4); Monocytes # 0.9 K/mcL (0.0-1.3); Monocytes % 5.7 %; Nucleated Red Blood Cells 0.7 /100 WBC (0); Platelet Count 295 K/mcL (140-400); Red Blood Count 3.03 M/mcL (3.82-4.97); Segmented Neutrophils % 84.9 %; White Blood Count 15.3 K/mcL (4.3-11.1)
[2020-04-27] MEDS: Pantoprazole 40 MG VIAL IVP SCH ×2 (05:50→16:19)
[2020-04-27 06:28] LABS: Calcium 8.1 mg/dL (8.6-10.3); Magnesium 2.6 mg/dL (1.6-2.6); Phosphorous 4.7 mg/dL (2.7-4.5); Potassium 4.3 mEq/L (3.5-5.1)
[2020-04-27] MEDS: Bumetanide 1 MG/4 ML VIAL IVP SCH ×2 (08:19→16:19)
[2020-04-27] MEDS: Piperacillin/Tazobactam 3.375 GM in 0.9 % Sodium Chloride Mini Bag 100 ML IVPB SCH ×3 (08:20→23:49)
[2020-04-27] MEDS: Doxycycline 100 MG CAPSULE PO SCH ×2 (08:20→20:33)
[2020-04-27] MEDS: DilTIAZem CD (24hr) 180 MG CAP.ER.24H PO SCH (08:21)
[2020-04-27] MEDS: Nystatin POWDER 30 GM BOTTLE TP SCH ×3 (08:21→20:34)
[2020-04-27] MEDS: Isosorbide MONOnitrate (24 HR) 30 MG TAB.ER.24H PO SCH (08:21)
[2020-04-27] MEDS: Metoprolol XL (24 HR) Succ 50 MG TAB.ER.24H PO SCH ×2 (08:22→20:34)
[2020-04-27] MEDS: predniSONE 20 MG TABLET PO SCH (08:22)
[2020-04-27 11:59] LABS: Hematocrit 29.9 % (35.3-44.9); Hemoglobin 9.5 g/dL (11.5-15.4)
[2020-04-27 14:05] LABS: Adenovirus Not Detected (Not Detect); Bordetella Pertussis Not Detected (Not Detect); Coronavirus 229E Not Detected (Not Detect); Coronavirus HKU1 Not Detected (Not Detect); Coronavirus NL63 Not Detected (Not Detect); Coronavirus OC43 Not Detected (Not Detect); Human Metapneumovirus Not Detected (Not Detect); Human Rhinovirus/Enterovirus Not Detected (Not Detect); Influenza A Subtype 2009 H1 Not Detected (Not Detect); Influenza B Not Detected (Not Detect); Parainfluenza Virus 1 Not Detected (Not Detect); Parainfluenza Virus 2 Not Detected (Not Detect); Parainfluenza Virus 3 Not Detected (Not Detect); Parainfluenza Virus 4 Not Detected (Not Detect); Respiratory Syncytial Virus Not Detected (Not Detect); SARS-CoV-2 Not Detected (Not Detect)
[2020-04-27 14:06] LABS: Chlamydophila pneumoniae Not Detected (Not Detect); Mycoplasma pneumoniae Not Detected (Not Detect)
[2020-04-27] MEDS: Vancomycin 1,250 MG/262.5 ML IV.SOLN IVPB SCH (17:04)
[2020-04-27 17:44] LABS: Hematocrit 29.8 % (35.3-44.9); Hemoglobin 9.3 g/dL (11.5-15.4)
[2020-04-27] MEDS: Albumin 25% 25gram/100mL 25 GM/100 ML IV.SOLN IVPB SCH (23:49)
[2020-04-28 01:36] LABS: Basophils % 0.1 %; Eosinophils % 0.1 %; Hematocrit 27.2 % (35.3-44.9); Hemoglobin 8.5 g/dL (11.5-15.4); Immature Granulocytes % 2.6 % (0-4); Lymphocytes # 0.7 K/mcL (0.6-4.6); Lymphocytes % 4.9 %; Mean Corpuscular HGB Conc 31.3 g/dL (31.6-35.5); Mean Corpuscular Hemoglobin 29.4 pg (28.0-33.3); Mean Corpuscular Volume 94.1 fL (83.0-100.0); Mean Platelet Volume 11.4 fL (9.4-12.4); Monocytes # 1.2 K/mcL (0.0-1.3); Monocytes % 8.9 %; Neutrophils # 11.2 K/mcL (1.6-8.9); Nucleated Red Blood Cells 0.4 /100 WBC (0); Platelet Count 290 K/mcL (140-400); Red Blood Count 2.89 M/mcL (3.82-4.97); Red Cell Distribution Width 15.4 % (11.5-14.5); Segmented Neutrophils % 83.4 %; White Blood Count 13.4 K/mcL (4.3-11.1)
[2020-04-28 02:01] LABS: Magnesium 2.3 mg/dL (1.6-2.6); Phosphorous 4.7 mg/dL (2.7-4.5); Potassium 3.4 mEq/L (3.5-5.1)
[2020-04-28] MEDS: Ipratropium Neb 0.5 MG NEBULIZER IH SCH ×6 (03:51→23:43)
[2020-04-28] MEDS: Pantoprazole 40 MG VIAL IVP SCH ×2 (05:22→16:33)
[2020-04-28] MEDS: Nitroglycerin 0.4 MG TAB.SUBL SL PRN ×3 (06:19→14:57)
[2020-04-28] MEDS: predniSONE 20 MG TABLET PO SCH (08:36)
[2020-04-28] MEDS: Isosorbide MONOnitrate (24 HR) 30 MG TAB.ER.24H PO SCH (08:36)
[2020-04-28] MEDS: Doxycycline 100 MG CAPSULE PO SCH ×2 (08:36→22:12)
[2020-04-28] MEDS: Bumetanide 1 MG/4 ML VIAL IVP SCH ×2 (08:36→16:34)
[2020-04-28] MEDS: Metoprolol XL (24 HR) Succ 50 MG TAB.ER.24H PO SCH ×2 (08:36→22:12)
[2020-04-28] MEDS: DilTIAZem CD (24hr) 180 MG CAP.ER.24H PO SCH (08:36)
[2020-04-28] MEDS: Piperacillin/Tazobactam 3.375 GM in 0.9 % Sodium Chloride Mini Bag 100 ML IVPB SCH ×3 (08:37→23:07)
[2020-04-28] MEDS: Nystatin POWDER 30 GM BOTTLE TP SCH ×3 (08:57→22:13)
[2020-04-28] MEDS: Albumin 25% 25gram/100mL 25 GM/100 ML IV.SOLN IVPB SCH ×2 (11:09→18:34)
[2020-04-28] MEDS ORDERED: metOLazone 5 MG TABLET PO ONE (11:30)
[2020-04-28 14:19] LABS: Hematocrit 28.2 % (35.3-44.9); Hemoglobin 8.6 g/dL (11.5-15.4)
[2020-04-28] MEDS: *HR* HYDROcodone/Acet 5/325 mg TABLET PO PRN ×2 (16:33→22:55)
[2020-04-29] MEDS: Ipratropium Neb 0.5 MG NEBULIZER IH SCH ×6 (03:22→23:57)
[2020-04-29 03:38] LABS: Basophils % 0.1 %; Eosinophils % 0.1 %; Hematocrit 26.4 % (35.3-44.9); Hemoglobin 8.2 g/dL (11.5-15.4); Immature Granulocytes % 2.1 % (0-4); Lymphocytes # 0.6 K/mcL (0.6-4.6); Lymphocytes % 5.2 %; Mean Corpuscular HGB Conc 31.1 g/dL (31.6-35.5); Mean Corpuscular Hemoglobin 29.9 pg (28.0-33.3); Mean Corpuscular Volume 96.4 fL (83.0-100.0); Mean Platelet Volume 11.7 fL (9.4-12.4); Monocytes # 0.8 K/mcL (0.0-1.3); Monocytes % 6.8 %; Nucleated Red Blood Cells 0.3 /100 WBC (0); Platelet Count 239 K/mcL (140-400); Red Blood Count 2.74 M/mcL (3.82-4.97); Red Cell Distribution Width 15.9 % (11.5-14.5); Segmented Neutrophils % 85.7 %; White Blood Count 11.6 K/mcL (4.3-11.1)
[2020-04-29 03:49] LABS: Calcium 9.2 mg/dL (8.6-10.3); Magnesium 2.4 mg/dL (1.6-2.6); Phosphorous 4.5 mg/dL (2.7-4.5); Potassium 3.3 mEq/L (3.5-5.1)
[2020-04-29] MEDS: Pantoprazole 40 MG VIAL IVP SCH (05:41)
[2020-04-29] MEDS ORDERED: metOLazone 5 MG TABLET PO SCH (07:30)
[2020-04-29] MEDS: Doxycycline 100 MG CAPSULE PO SCH ×2 (07:45→20:01)
[2020-04-29] MEDS: DilTIAZem CD (24hr) 180 MG CAP.ER.24H PO SCH (07:45)
[2020-04-29] MEDS: Metoprolol XL (24 HR) Succ 50 MG TAB.ER.24H PO SCH ×2 (07:45→20:01)
[2020-04-29] MEDS: Piperacillin/Tazobactam 3.375 GM in 0.9 % Sodium Chloride Mini Bag 100 ML IVPB SCH ×2 (07:46→15:43)
[2020-04-29] MEDS: Isosorbide MONOnitrate (24 HR) 30 MG TAB.ER.24H PO SCH (07:46)
[2020-04-29] MEDS: predniSONE 20 MG TABLET PO SCH (07:46)
[2020-04-29 08:33] LABS: ABG Base Excess 4 mEq/L (-2 to 3); ABG HCO3 27 mEq/L (21-27); ABG Oxygen Saturation 91 % (95-98); ABG PCO2 34 mmHg (35-45); ABG PH 7.52 pH Units (7.32-7.45); ABG PO2 55 mmHg (85-104); ABG TCO2 28 mEq/L (20-26)
[2020-04-29] MEDS: Nystatin POWDER 30 GM BOTTLE TP SCH ×3 (09:30→20:01)
[2020-04-29] MEDS: Bumetanide 1 MG/4 ML VIAL IVP SCH ×2 (11:54→17:57)
[2020-04-29] MEDS ORDERED: *HR* LORazepam Oral Conc 2 MG/ML PO PRN (15:29)
[2020-04-29] MEDS: *HR* OxyCODONE/APAP 5/325 TABLET PO SCH ×2 (15:40→17:57)
[2020-04-29] MEDS: Budesonide/Formoterol 160/4.5 1 PUFF INH IH SCH (19:45)
[2020-04-30] MEDS: Piperacillin/Tazobactam 3.375 GM in 0.9 % Sodium Chloride Mini Bag 100 ML IVPB SCH ×3 (00:27→17:02)
[2020-04-30] MEDS: *HR* OxyCODONE/APAP 5/325 TABLET PO SCH ×3 (00:27→11:58)
[2020-04-30] MEDS: Ipratropium Neb 0.5 MG NEBULIZER IH SCH ×6 (03:13→23:52)
[2020-04-30] MEDS: Budesonide/Formoterol 160/4.5 1 PUFF INH IH SCH ×2 (07:48→20:12)
[2020-04-30] MEDS: Metoprolol XL (24 HR) Succ 50 MG TAB.ER.24H PO SCH ×2 (09:35→20:36)
[2020-04-30] MEDS: Doxycycline 100 MG CAPSULE PO SCH ×2 (09:35→20:35)
[2020-04-30] MEDS: predniSONE 20 MG TABLET PO SCH (09:35)
[2020-04-30] MEDS: DilTIAZem CD (24hr) 180 MG CAP.ER.24H PO SCH (09:35)
[2020-04-30] MEDS: Isosorbide MONOnitrate (24 HR) 30 MG TAB.ER.24H PO SCH (09:35)
[2020-04-30] MEDS: Nystatin POWDER 30 GM BOTTLE TP SCH ×3 (09:36→20:35)
[2020-04-30] MEDS: Bumetanide 1 MG/4 ML VIAL IVP SCH ×2 (10:46→17:01)
[2020-04-30] MEDS ORDERED: *HR* OxyCODONE/APAP 5/325 TABLET PO PRN (13:43)
[2020-04-30] MEDS ORDERED: *HR* OxyCODONE ER (12 HR) 20 MG TABLET PO SCH (21:00)
[2020-05-01] MEDS: Piperacillin/Tazobactam 3.375 GM in 0.9 % Sodium Chloride Mini Bag 100 ML IVPB SCH ×2 (01:32→10:03)
[2020-05-01] MEDS: *HR* OxyCODONE ER (12 HR) 10 MG TABLET PO SCH ×2 (01:32→10:02)
[2020-05-01] MEDS: Ipratropium Neb 0.5 MG NEBULIZER IH SCH ×2 (03:42→07:37)
[2020-05-01 07:16] VITALS: BP 104/63
[2020-05-01] MEDS: Budesonide/Formoterol 160/4.5 1 PUFF INH IH SCH (07:37)
[2020-05-01] MEDS ORDERED: Bumetanide 1 MG TABLET PO SCH (08:30)
[2020-05-01] MEDS: DilTIAZem CD (24hr) 180 MG CAP.ER.24H PO SCH (10:01)
[2020-05-01] MEDS: Metoprolol XL (24 HR) Succ 50 MG TAB.ER.24H PO SCH (10:01)
[2020-05-01] MEDS: predniSONE 20 MG TABLET PO SCH (10:01)
[2020-05-01] MEDS: Isosorbide MONOnitrate (24 HR) 30 MG TAB.ER.24H PO SCH (10:01)
[2020-05-01] MEDS: Aspirin Enteric Coated 81 MG Tablet PO SCH (10:02)
[2020-05-01] MEDS: Bumetanide 1 MG/4 ML VIAL IVP SCH (10:02)
[2020-05-01] MEDS: Doxycycline 100 MG CAPSULE PO SCH (10:02)
[2020-05-01] MEDS: Nystatin POWDER 30 GM BOTTLE TP SCH (10:04)
== END 2020-05-01 10:55 | disposition hospice, inpatient (51) | DRG 871 ==
LOC: 2NENU → SUATTDRO 23:04 → CDU 04-18 21:37 → 2NNU 04-19 15:53 → 2ANU 04-27 12:47
PROVIDERS: ADMIT Family Medicine; ATTEND Internal Medicine

== ENCOUNTER 2020-05-01 09:29 | Inpatient (IN) ==
[2020-05-01] MEDS ORDERED: Bisacodyl 10 MG RECTAL SUPPOSITORY RC PRN (09:42)
[2020-05-01] MEDS ORDERED: *HR* LORazepam Oral Conc 2 MG/ML PO PRN (09:42)
[2020-05-01] MEDS ORDERED: Nitroglycerin 0.4 MG TAB.SUBL SL PRN (09:51)
[2020-05-01] MEDS: Ipratropium Neb 0.5 MG NEBULIZER IH SCH ×4 (11:17→23:42)
[2020-05-01] MEDS: Furosemide 40 MG TABLET PO SCH (12:15)
[2020-05-01] MEDS: *HR* FentaNYL PATCH 12 MCG PATCH TD SCH (12:15)
[2020-05-01] MEDS: Budesonide/Formoterol 160/4.5 1 PUFF INH IH SCH (20:02)
[2020-05-02] MEDS: Ipratropium Neb 0.5 MG NEBULIZER IH SCH ×6 (03:30→23:31)
[2020-05-02] MEDS: Budesonide/Formoterol 160/4.5 1 PUFF INH IH SCH ×2 (07:30→19:48)
[2020-05-02] MEDS ORDERED: Morphine Sulfate 2 MG/ML SYRINGE IVP PRN (09:53)
[2020-05-02] MEDS: Isosorbide MONOnitrate (24 HR) 30 MG TAB.ER.24H PO SCH (09:56)
[2020-05-02] MEDS: Metoprolol XL (24 HR) Succ 50 MG TAB.ER.24H PO SCH (09:56)
[2020-05-02] MEDS: DilTIAZem CD (24hr) 180 MG CAP.ER.24H PO SCH (09:56)
[2020-05-02] MEDS: Aspirin Enteric Coated 81 MG Tablet PO SCH (09:57)
[2020-05-02] MEDS: predniSONE 20 MG TABLET PO SCH (09:57)
[2020-05-02] MEDS: Furosemide 40 MG TABLET PO SCH (09:57)
[2020-05-03] MEDS: Ipratropium Neb 0.5 MG NEBULIZER IH SCH ×6 (03:46→23:48)
[2020-05-03] MEDS: Budesonide/Formoterol 160/4.5 1 PUFF INH IH SCH ×2 (07:30→20:02)
[2020-05-03] MEDS: Metoprolol XL (24 HR) Succ 50 MG TAB.ER.24H PO SCH (08:15)
[2020-05-03] MEDS: DilTIAZem CD (24hr) 180 MG CAP.ER.24H PO SCH (08:15)
[2020-05-03] MEDS: Isosorbide MONOnitrate (24 HR) 30 MG TAB.ER.24H PO SCH (08:15)
[2020-05-03] MEDS: predniSONE 20 MG TABLET PO SCH (08:16)
[2020-05-03] MEDS: Furosemide 40 MG TABLET PO SCH (08:16)
[2020-05-03] MEDS: Aspirin Enteric Coated 81 MG Tablet PO SCH (08:16)
[2020-05-04] MEDS: Ipratropium Neb 0.5 MG NEBULIZER IH SCH ×3 (03:35→11:11)
[2020-05-04] MEDS: Budesonide/Formoterol 160/4.5 1 PUFF INH IH SCH (07:35)
[2020-05-04 08:04] VITALS: BP 95/63
[2020-05-04] MEDS: *HR* FentaNYL PATCH 12 MCG PATCH TD SCH (10:06)
[2020-05-04] MEDS: Furosemide 40 MG TABLET PO SCH (10:06)
[2020-05-04] MEDS: Metoprolol XL (24 HR) Succ 50 MG TAB.ER.24H PO SCH (10:06)
[2020-05-04] MEDS: Isosorbide MONOnitrate (24 HR) 30 MG TAB.ER.24H PO SCH (10:06)
[2020-05-04] MEDS: predniSONE 20 MG TABLET PO SCH (10:06)
[2020-05-04] MEDS: Aspirin Enteric Coated 81 MG Tablet PO SCH (10:06)
[2020-05-04] MEDS: DilTIAZem CD (24hr) 180 MG CAP.ER.24H PO SCH (10:06)
== END 2020-05-04 13:00 | disposition hospice, inpatient (51) | DRG 951 ==
LOC: 2ANU 10:59
PROVIDERS: ADMIT Internal Medicine Hospice and Palliative Medicine; ATTEND Internal Medicine Hospice and Palliative Medicine

== ENCOUNTER 2020-05-23 11:59 | Inpatient (IN) ==
[2020-05-23] MEDS ORDERED: Atropine Sulfate 1% 40 DROP/2 ML BOTTLE SL PRN (12:53)
[2020-05-23] MEDS ORDERED: Bisacodyl 10 MG RECTAL SUPPOSITORY RC PRN (12:53)
[2020-05-23] MEDS ORDERED: *HR* LORazepam Oral Conc 2 MG/ML PO PRN (12:53)
[2020-05-23] MEDS ORDERED: *HR* FentaNYL PATCH 12 MCG PATCH TD SCH (13:00)
[2020-05-23] MEDS ORDERED: Morphine Sulfate Oral CONC 10 MG/0.5 ML ORAL.SYG SL PRN (14:29)
[2020-05-23] MEDS: Levalbuterol Neb 0.63 MG/3 ML IH SCH ×2 (16:01→21:54)
[2020-05-23] MEDS: Morphine Sulfate Oral CONC 10 MG/0.5 ML ORAL.SYG SL SCH ×2 (16:35→20:21)
[2020-05-23] MEDS: Sennosides/Docusate Sodium TABLET PO SCH (20:21)
[2020-05-23] MEDS: polyethylene glycoL 3350 17 GM POWD.PACK PO SCH (20:21)
[2020-05-23] MEDS: Budesonide/Formoterol 160/4.5 1 PUFF INH IH SCH (21:53)
[2020-05-24] MEDS: Morphine Sulfate Oral CONC 10 MG/0.5 ML ORAL.SYG SL SCH ×6 (00:11→20:24)
[2020-05-24] MEDS: Levalbuterol Neb 0.63 MG/3 ML IH SCH ×4 (04:07→21:38)
[2020-05-24] MEDS: DilTIAZem CD (24hr) 180 MG CAP.ER.24H PO SCH (08:45)
[2020-05-24] MEDS: Aspirin Enteric Coated 81 MG Tablet PO SCH (08:45)
[2020-05-24] MEDS: Furosemide 40 MG TABLET PO SCH (08:45)
[2020-05-24] MEDS: Sennosides/Docusate Sodium TABLET PO SCH ×2 (08:45→20:24)
[2020-05-24] MEDS: Isosorbide MONOnitrate (24 HR) 30 MG TAB.ER.24H PO SCH (08:45)
[2020-05-24] MEDS: Metoprolol XL (24 HR) Succ 50 MG TAB.ER.24H PO SCH (08:45)
[2020-05-24] MEDS: polyethylene glycoL 3350 17 GM POWD.PACK PO SCH ×2 (08:45→20:24)
[2020-05-24] MEDS: Budesonide/Formoterol 160/4.5 1 PUFF INH IH SCH ×2 (10:16→21:38)
[2020-05-25] MEDS: Morphine Sulfate Oral CONC 10 MG/0.5 ML ORAL.SYG SL SCH ×4 (00:28→12:24)
[2020-05-25] MEDS: Levalbuterol Neb 0.63 MG/3 ML IH SCH ×2 (04:11→10:03)
[2020-05-25 07:05] VITALS: BP 92/62
[2020-05-25] MEDS: polyethylene glycoL 3350 17 GM POWD.PACK PO SCH (08:42)
[2020-05-25] MEDS: Sennosides/Docusate Sodium TABLET PO SCH (08:46)
[2020-05-25] MEDS: Furosemide 40 MG TABLET PO SCH (08:46)
[2020-05-25] MEDS: DilTIAZem CD (24hr) 180 MG CAP.ER.24H PO SCH (08:46)
[2020-05-25] MEDS: Metoprolol XL (24 HR) Succ 50 MG TAB.ER.24H PO SCH (08:46)
[2020-05-25] MEDS: Aspirin Enteric Coated 81 MG Tablet PO SCH (08:46)
[2020-05-25] MEDS: Isosorbide MONOnitrate (24 HR) 30 MG TAB.ER.24H PO SCH (08:47)
[2020-05-25] MEDS: Budesonide/Formoterol 160/4.5 1 PUFF INH IH SCH (10:04)
== END 2020-05-25 13:12 | disposition hospice, inpatient (51) | DRG 951 ==
LOC: 2ANU 14:54
PROVIDERS: ADMIT Internal Medicine Hospice and Palliative Medicine; ATTEND Internal Medicine Hospice and Palliative Medicine